=== PATIENT | female | born 1980 | race Caucasian/White ===

== ENCOUNTER → 2020-06-13 | Outpatient (CLI) | payer BC ==
--- NOTE | 2020-06-14 10:30 | MM ---
Reason for exam: screening (asymptomatic). Baseline mammogram. Physical Findings: Nurse did not find any significant physical abnormalities on exam. MG 3D Screening Mammo W/Cad Bilateral CC and MLO view(s) were taken. The breast tissue is heterogeneously dense. This may lower the sensitivity of mammography. There is no discrete abnormality. These results were verbally communicated with the patient and result sheet given to the patient on 06/13/20. ASSESSMENT: Negative, BI-RAD 1 RECOMMENDATION: Routine screening mammogram of both breasts in 1 year.
== END | disposition home or self-care (01) ==
LOC: RADMAMWWP 15:52
PROVIDERS: ATTEND Family Medicine
DX: Z12.31 Encounter for screening mammogram for malignant neoplasm of breast (principal)
CPT/HCPCS: 77063; 77067

== ENCOUNTER → 2021-07-21 | Outpatient (CLI) | payer BC ==
--- NOTE | 2021-07-24 11:09 | MM ---
Reason for exam: screening (asymptomatic). Last mammogram was performed 1 year and 1 month ago. Physical Findings: A clinical breast exam by your physician is recommended on an annual basis and results should be correlated with mammographic findings. MG 3D Screening Mammo W/Cad Bilateral CC and MLO view(s) were taken. Prior study comparison: June 13, 2020, bilateral MG 3d screening mammo w/cad. The breast tissue is heterogeneously dense. This may lower the sensitivity of mammography. No significant changes when compared with prior studies. ASSESSMENT: Negative, BI-RAD 1 RECOMMENDATION: Routine screening mammogram of both breasts in 1 year. Patient should continue monthly self breast exams. A negative report should not preclude additional follow up of suspicious palpable abnormalities.
== END | disposition home or self-care (01) ==
LOC: RADMAMWWP 15:16
PROVIDERS: ATTEND Obstetrics & Gynecology
DX: Z12.31 Encounter for screening mammogram for malignant neoplasm of breast (principal)
CPT/HCPCS: 77063; 77067

== ENCOUNTER → 2021-11-17 | Outpatient (CLI) | payer BC ==
--- NOTE | 2021-11-17 08:25 | US ---
EXAMINATION TYPE: US pelvis complete transvag DATE OF EXAM: 11/17/2021 COMPARISON: NONE CLINICAL HISTORY: N93.9 AUB. TECHNIQUE: Transvaginal (TV) and Transabdominal (TA) . Both ordered by physician. Date of LMP: approximately 2 weeks ago. EXAM MEASUREMENTS: Uterus: 9.9 x 4.4 x 6.2 cm Endometrial Stripe: 1.2 cm Right Ovary: 2.6 x 1.9 x 0.9 cm Left Ovary: 3.6 x 2.5 x 1.6 cm 1. Uterus: Anteverted Posterior fibroid measures 2.4 x 1.7 x 2.4 cm. 2. Endometrium: measures 1.2 cm 3. Right Ovary: wnl 4. Left Ovary: mixed lesion with peripheral flow measures 1.7 x 1.1 x 1.6 cm. 5. Bilateral Adnexa: wnl 6. Posterior cul-de-sac: no free fluid Heterogeneous anteverted uterus with lobulated contour corresponding to 2.4 cm subserosal fibroid. En dometrial stripe is somewhat thickened for near day 14 of the menstrual cycle. Correlate clinically. No free fluid in the pelvic cul-de-sac. Both ovaries seen. No suspicious extra ovarian adnexal mass. IMPRESSION: Some prominence of the endometrial stripe difficult to quantify without known date of las t known menstrual period. There is 2.4 cm subserosal fibroid.
== END | disposition home or self-care (01) ==
LOC: RADUSWWP 07:32
PROVIDERS: ATTEND Obstetrics & Gynecology
DX: N93.9 Abnormal uterine and vaginal bleeding, unspecified (principal)
CPT/HCPCS: 76830; 76856